=== PATIENT | female | born 1995 | race Caucasian/White ===

== ENCOUNTER 2019-10-14 23:21 | Emergency (ER) | payer OTHER ==
[2019-10-15 00:27] LABS: #Basophils 0.1 thou/uL (0.0-0.2); #Lymphocytes 2.7 thou/uL (1.20-3.40); #Monocytes 0.6 thou/uL (0.11-0.59); #Neutrophils 9.9 thou/uL (1.40-6.50); %Basophils 0.4 % (0.0-1.0); %Eosinophils 0.4 % (0.0-10.0); %Monocytes 4.6 % (0.0-10.0); %Neutrophils 74.6 % (42.0-75.0); Hemoglobin 13.2 g/dL (12.0-16.0); Mean Corpuscular HGB CONC 34.9 g/dL (32.0-36.0); Mean Corpuscular Hemoglobin 30.4 pg (27.0-31.0); Mean Platelet Volume 7.1 fL (7.4-10.4); Platelet Count 277 thou/uL (130-400); Red Blood Cell (RBC) Count 4.34 mill/uL (4.20-5.40); White Blood Cell (WBC) Count 13.3 thou/uL (4.8-10.8)
[2019-10-15 00:47] LABS: ALT (SGPT) 13 U/L (8-55); AST (SGOT) 16 U/L (5-34); Albumin 4.5 g/dL (3.5-5.0); Alkaline Phosphatase 53 U/L (40-110); Anion Gap 14 mmol/L (10-20); BUN (Urea Nitrogen) 6 mg/dL (7.0-18.7); Bilirubin, Total 0.7 mg/dL (0.2-1.2); Calc. Creatinine Clearance 0 mL/min (70-130); Calcium 9.2 mg/dL (7.8-10.44); Carbon Dioxide 20 mmol/L (22-29); Chloride 105 mmol/L (98-107); Estimated GFR-MDRD Greater than 90; Glucose 103 mg/dL (70-105); Lipase 26 U/L (8-78); Potassium 3.7 mmol/L (3.5-5.1); Protein, Total 7.5 g/dL (6.0-8.3); Sodium 135 mmol/L (136-145)
[2019-10-15 00:53] LABS: Bacteria/HPF 1+ HPF (None Seen); Bilirubin Negative (Negative); Blood, Urine Trace (Negative); Clarity Turbid (Clear); Glucose, Urine (Dipstick) Normal (Negative); Leukocyte Negative Leu/uL (Negative); Nitrite Negative (Negative); Protein, Urine (Dipstick) Negative (Neg-Trace); RBC/HPF 0-3 HPF (0-3); Urobilinogen Normal mg/dL (Less than 2); WBC/HPF 0-3 HPF (0-3)
== END 2019-10-15 03:54 | disposition home or self-care (01) ==
LOC: ERS 23:21
DX: O99.611 Diseases of the digestive system complicating pregnancy, first trimester (principal); K59.00 Constipation, unspecified; Z3A.12 12 weeks gestation of pregnancy
CPT/HCPCS: 36415; 80053; 81003; 81015; 83690; 85025; 99284

== ENCOUNTER 2019-12-08 08:34 | Outpatient (CLI) | payer OTHER ==
--- NOTE | 2019-12-08 11:47 | ULT ---
OB ULTRASOUND: HISTORY: Size and dates: FINDINGS: Real-time imaging of the pelvis shows a single viable intrauterine in a breech presentation . The placenta is anterior in location. There are no signs of previa. heart rate is 139 b.p. m. Amniotic fluid is adequate for this stage of . The amniotic fluid index is 14.6. measurements are as follows: BPD 4.4 cm, 19 weeks 2 days Head circumference 16.2 cm, 19 weeks 0 days Abdominal circumference 14.1 cm, 19 weeks 4 days Femur length 3.0 cm, 19 weeks 2 days Review of anatomy shows normal-appearing, cerebellum, 4-chamber heart, stomach, kidneys, bladde r, cord insertion, 3-vessel cord, and spine all appear unremarkable. No anomalies detected. IMPRESSION: 1. Single viable intrauterine in a breech presentation, overall measurements corresponding to 19 weeks 2 days, estimated date of delivery 05/01/2020. 2. Placenta which is anterior in location without evidence of previa. 3. Cervical canal length of 4 cm. POS: [facility]
== END 2019-12-08 08:35 | disposition home or self-care (01) ==
LOC: BICULT 08:34
PROVIDERS: ATTEND Nurse Practitioner
DX: Z34.02 Encounter for supervision of normal first pregnancy, second trimester (principal); Z3A.19 19 weeks gestation of pregnancy
CPT/HCPCS: 76805

== ENCOUNTER 2020-04-04 13:21 | Emergency (ER) | payer OTHER ==
[2020-04-05 14:54] LABS: SARS-CoV-2 MS2 Positive; SARS-CoV-2 N Gene Negative; SARS-CoV-2 S Gene Negative; SARS-CoV-2 orf1ab Negative
== END 2020-04-04 14:07 | disposition home or self-care (01) ==
LOC: ERS 13:21
DX: Z20.828 Contact with and (suspected) exposure to other viral communicable diseases (principal); F41.9 Anxiety disorder, unspecified
CPT/HCPCS: 87635; 99283; U0003

== ENCOUNTER 2020-04-23 07:06 | Outpatient (CLI) | payer OTHER ==
[2020-04-24 12:16] LABS: SARS-CoV-2 MS2 Positive; SARS-CoV-2 N Gene Negative; SARS-CoV-2 S Gene Negative; SARS-CoV-2 orf1ab Negative
== END 2020-04-23 07:07 | disposition home or self-care (01) ==
LOC: LABSCS 07:06
PROVIDERS: ATTEND Family Medicine
DX: Z01.812 Encounter for preprocedural laboratory examination (principal); Z11.59 Encounter for screening for other viral diseases
CPT/HCPCS: 87635; U0003